=== PATIENT | female | born 1950 | race African-American/Black ===

== ENCOUNTER 2017-05-09 02:49 | Emergency (ER) | payer MEDICARE ==
[~2017-05-09] VITALS: Ht 172.7 cm; Wt 81.6 kg
[2017-05-09 03:40] VITALS: BP 130/80
[2017-05-09 03:41] LABS: Basophils # (auto) 0.1 uL; Basophils % (auto) 0.7 % (0.0-2.0); Eosinophils # (auto) 0.4 uL; Eosinophils % (auto) 4.8 % (0.0-7.0); Hematocrit 40.8 % (36.0-46.0); Hemoglobin 14.1 g/dL (12.2-16.2); Lymphocytes # (auto) 1.7 uL; Lymphocytes % (auto) 21.6 % (10.0-50.0); Mean Corpuscular Hemoglobin 29.6 pg (28.0-32.0); Mean Corpuscular Hgb Conc. 34.6 g/dL (32.0-36.0); Mean Corpuscular Volume 85.7 fL (80.0-100.0); Mean Platelet Volume 6.7 fL (6.9-10.8); Monocytes # (auto) 0.8 uL; Monocytes % (auto) 10.3 % (0.0-12.0); Neutrophils # (auto) 4.9 uL; Neutrophils % (auto) 62.6 % (37.0-80.0); Nucleated Red Blood Cells % 0.1 %; Platelet Count (auto) 326 10^3/uL (140-450); Red Cell Distribution Width 14.2 % (11.8-14.3); White Blood Cell 7.9 10^3/uL (4.4-10.8)
[2017-05-09 04:06] LABS: Albumin 3.5 g/dL (3.4-5.0); Alkaline Phosphatase 130 U/L (45-117); Anion Gap 8 (5-15); Aspartate Aminotransferase 29 U/L (15-37); BUN/Creatinine Ratio 16.3; Bilirubin, Total 0.3 mg/dL (0.2-1.0); Blood Urea Nitrogen 14 mg/dL (7-18); Calcium 8.8 mg/dL (8.5-10.1); Carbon Dioxide 28 mmol/L (21-32); Chloride 102 mmol/L (98-107); GFR African American 84 mL/min; GFR Non-African American 70 mL/min; Glucose 105 mg/dL (74-106); Potassium 3.4 mmol/L (3.5-5.1); Sodium 138 mmol/L (136-145); Total Protein 7.5 g/dL (6.4-8.2)
[2017-05-09 04:19] LABS: B-Type Natriuretic Peptide 10.81 pg/mL (0-100)
[2017-05-09 04:20] LABS: Temperature: 22.9 C (20.0-25.0)
== END 2017-05-09 05:42 | disposition home or self-care (01) ==
LOC: EDBD 02:49 → ER 02:54
DX: M54.17 Radiculopathy, lumbosacral region (principal); E87.6 Hypokalemia; I50.9 Heart failure, unspecified; I11.0 Hypertensive heart disease with heart failure
CPT/HCPCS: 36415; 71010; 72131; 80053; 83880; 84484; 85025; 93005

== ENCOUNTER 2019-09-14 02:22 | Emergency (ER) | payer OTHER ==
[~2019-09-14] VITALS: Ht 157.5 cm; Wt 81.6 kg
[2019-09-14] MEDS ORDERED: methylPREDNISolone SOD SUCC 125 MG/2 ML VL IM ONE (05:15)
[2019-09-14] MEDS ORDERED: cefTRIAXone SOD 1,000 MG VL IM ONE (05:15)
[2019-09-14] MEDS ORDERED: cefTRIAXone W LIDOCAINE 1 GM IM IM ONE (05:15)
[2019-09-14] MEDS ORDERED: PROMETHAZINE W/CODEINE 5 ML ORAL SYRUP PO ONE (05:15)
[2019-09-14 05:43] VITALS: BP 162/96
== END 2019-09-14 06:29 | disposition home or self-care (01) ==
LOC: ER 02:22
DX: J18.9 Pneumonia, unspecified organism (principal); H60.93 Unspecified otitis externa, bilateral; I11.0 Hypertensive heart disease with heart failure; I50.9 Heart failure, unspecified
CPT/HCPCS: 71046; 96372; 99283; J0696; J2930

== ENCOUNTER 2020-07-26 08:05 | Emergency (ER) | payer OTHER ==
[~2020-07-26] VITALS: Ht 157.5 cm; Wt 79.4 kg
[2020-07-26 09:00] VITALS: BP 135/96
== END 2020-07-26 09:35 | disposition home or self-care (01) ==
LOC: ER 08:05
DX: K59.00 Constipation, unspecified (principal); I11.0 Hypertensive heart disease with heart failure; I50.9 Heart failure, unspecified

== ENCOUNTER 2021-09-02 13:15 | Emergency (ER) | payer OTHER ==
[~2021-09-02] VITALS: Ht 157.5 cm; Wt 81.6 kg
[2021-09-02 14:26] LABS: Basophils # (auto) 0.1 10 ^3/uL (0-0.2); Basophils % (auto) 0.7 % (0.0-2.0); Eosinophils # (auto) 0.1 10 ^3/uL (0-0.8); Eosinophils % (auto) 0.9 % (0.0-7.0); Hematocrit 43.8 % (36.0-46.0); Hemoglobin 14.8 g/dL (12.2-16.2); Lymphocytes % (auto) 12.7 % (10.0-50.0); Mean Corpuscular Hemoglobin 28.3 pg (28.0-32.0); Mean Corpuscular Hgb Conc. 33.7 g/dL (32.0-36.0); Mean Corpuscular Volume 84.1 fL (80.0-100.0); Monocytes # (auto) 1.1 10 ^3/uL (0-1.3); Monocytes % (auto) 14.4 % (0.0-12.0); Neutrophils # (auto) 5.6 10 ^3/uL (1.6-8.6); Neutrophils % (auto) 71.3 % (37.0-80.0); Red Blood Cells 5.21 10^6/uL (4.0-5.20); Red Cell Distribution Width 14.8 % (11.8-14.3); White Blood Cell 7.9 10^3/uL (4.4-10.8)
[2021-09-02 14:39] LABS: Albumin 3.8 g/dL (3.4-5.0); Calcium 9.1 mg/dL (8.5-10.1); Potassium 3.6 mmol/L (3.5-5.1)
[2021-09-02 14:44] LABS: BUN/Creatinine Ratio 14.1; Bilirubin, Total 0.3 mg/dL (0.2-1.0); Total Protein 7.8 g/dL (6.4-8.2)
[2021-09-02] MEDS ORDERED: cefTRIAXone 1GM/50ML D5W 50 ML IV ONE (19:45)
[2021-09-02] MEDS ORDERED: AZITHROMYCIN 500MG/ 250ML 250 ML IV ONE (19:45)
[2021-09-02] MEDS ORDERED: DexAMETHasone SOD PHOS 10MG/1ML VIAL INJ IV ONE (20:30)
[2021-09-03] MEDS ORDERED: IPRATROPIUM BROM 0.5 MG/2.5ML INH SOL NEB ONE (07:45)
[2021-09-03] MEDS ORDERED: SPIRONOLACTONE 25 MG TAB PO ONE (07:45)
[2021-09-03] MEDS ORDERED: AZITHROMYCIN 250 MG TAB PO ONE (07:45)
[2021-09-03] MEDS ORDERED: ALBUTEROL SULF 2.5 MG/0.5ML(0.5%) NEB SOLN NEB ONE (07:45)
[2021-09-03] MEDS ORDERED: FUROSEMIDE 40 MG/4 ML VIAL IV ONE (07:45)
[2021-09-03 10:30] VITALS: BP 115/60
== END 2021-09-03 10:48 | disposition home or self-care (01) ==
LOC: ER 13:19
DX: U07.1 COVID-19 (principal); J12.82 Pneumonia due to coronavirus disease 2019; R42 Dizziness and giddiness; I11.0 Hypertensive heart disease with heart failure; I50.9 Heart failure, unspecified; J45.909 Unspecified asthma, uncomplicated
CPT/HCPCS: 36415; 70450; 71045; 80053; 84484; 85025; 87426; 93005; 94640; 96365; 96366; 96368; 96375; 99285; J0456; J0696; J1100; J1940; J7644

== ENCOUNTER 2022-01-15 19:10 | Emergency (ER) | payer OTHER ==
[~2022-01-15] VITALS: Ht 157.5 cm; Wt 81.6 kg
[2022-01-15 19:20] VITALS: BP 120/81
[2022-01-15] MEDS ORDERED: guaiFENesin-CODEINE Liq 5 ML UD PO ONE (21:00)
[2022-01-15] MEDS ORDERED: FUROSEMIDE 40 MG TAB PO ONE (22:00)
[2022-01-15] MEDS ORDERED: CEPH-322 PO (22:12)
== END 2022-01-15 22:44 | disposition home or self-care (01) ==
LOC: ER 19:10
DX: S90.822A Blister (nonthermal), left foot, initial encounter (principal); R60.0 Localized edema; I11.0 Hypertensive heart disease with heart failure; I50.9 Heart failure, unspecified; J45.909 Unspecified asthma, uncomplicated; X58.XXXA Exposure to other specified factors, initial encounter; Y93.89 Activity, other specified; Y92.89 Other specified places as the place of occurrence of the external cause; Y99.8 Other external cause status
CPT/HCPCS: 71045; 93971

== ENCOUNTER 2022-03-06 09:12 | Emergency (ER) | payer OTHER ==
[~2022-03-06] VITALS: Ht 157.5 cm; Wt 180.0 kg
[~2022-03-06 09:12] MED LIST: CEPH-322 PO
[2022-03-06 09:18] VITALS: BP 117/49
[2022-03-06 09:54] LABS: Urine Bacteria FEW /hpf (None Seen); Urine Blood 2+ /uL (Negative); Urine Specific Gravity 1.015 (1.001-1.035); Urine WBC 1907 /hpf (0 - 5); Urine WBC Clumps PRESENT /hpf (None Seen)
[2022-03-06] MEDS ORDERED: cefTRIAXone 1GM/50ML D5W 50 ML IV ONE (10:15)
[2022-03-06] MEDS ORDERED: SULF800T7 PO (10:28)
== END 2022-03-06 11:09 | disposition home or self-care (01) ==
LOC: ER 09:12
DX: N39.0 Urinary tract infection, site not specified (principal); J45.909 Unspecified asthma, uncomplicated; I10 Essential (primary) hypertension; G89.29 Other chronic pain; Z87.440 Personal history of urinary (tract) infections
CPT/HCPCS: 81001; 96365; 99284; J0696

== ENCOUNTER 2022-10-09 02:11 | Emergency (ER) | payer OTHER ==
[~2022-10-09] VITALS: Ht 157.5 cm; Wt 88.5 kg
[~2022-10-09 02:11] MED LIST changes: +SULF800T7 PO
[2022-10-09] MEDS ORDERED: ALBUTEROL SULF 2.5 MG/0.5ML(0.5%) NEB SOLN ONE (02:28)
[2022-10-09] MEDS ORDERED: IPRATROPIUM BROM 0.5 MG/2.5ML INH SOL ONE (02:28)
[2022-10-09] MEDS ORDERED: ALBUTEROL SULF 2.5 MG/0.5ML(0.5%) NEB SOLN NEB ONE (02:45)
[2022-10-09] MEDS ORDERED: IPRATROPIUM BROM 0.5 MG/2.5ML INH SOL NEB ONE (02:45)
[2022-10-09 03:10] LABS: Basophils # (auto) 0.1 10 ^3/uL (0-0.2); Basophils % (auto) 0.5 % (0.0-2.0); Eosinophils # (auto) 0.5 10 ^3/uL (0-0.8); Eosinophils % (auto) 4.7 % (0.0-7.0); Hematocrit 40.8 % (36.0-46.0); Hemoglobin 13.8 g/dL (12.2-16.2); Lymphocytes # (auto) 2.9 10 ^3/uL (0.4-5.4); Mean Corpuscular Hemoglobin 29.3 pg (28.0-32.0); Mean Corpuscular Hgb Conc. 33.7 g/dL (32.0-36.0); Mean Corpuscular Volume 86.8 fL (80.0-100.0); Monocytes # (auto) 0.9 10 ^3/uL (0-1.3); Monocytes % (auto) 8.4 % (0.0-12.0); Neutrophils # (auto) 6.4 10 ^3/uL (1.6-8.6); Neutrophils % (auto) 59.4 % (37.0-80.0); Nucleated Red Blood Cells % 0.1 %; Red Cell Distribution Width 14.6 % (11.8-14.3); White Blood Cell 10.7 10^3/uL (4.4-10.8)
[2022-10-09 03:28] LABS: Albumin 3.6 g/dL (3.4-5.0); BUN/Creatinine Ratio 20.6; Calcium 8.6 mg/dL (8.5-10.1)
[2022-10-09] MEDS ORDERED: DexAMETHasone SOD PHOS 10MG/1ML VIAL INJ IM ONE (03:45)
[2022-10-09] MEDS ORDERED: OSELTAMIVIR 75 MG CAP PO ONE (03:45)
[2022-10-09 04:02] LABS: Bilirubin, Total 0.3 mg/dL (0.2-1.0); Total Protein 7.1 g/dL (6.4-8.2)
[2022-10-09] MEDS ORDERED: ALBU108A5 IN (04:29)
[2022-10-09] MEDS ORDERED: BENZ200C64 PO (04:29)
[2022-10-09] MEDS ORDERED: OSEL75CA5 PO (04:29)
[2022-10-09 05:07] VITALS: BP 131/61
== END 2022-10-09 05:12 | disposition home or self-care (01) ==
LOC: EDBD 02:11 → ER 02:11
DX: J10.00 Influenza due to other identified influenza virus with unspecified type of pneumonia (principal); J10.1 Influenza due to other identified influenza virus with other respiratory manifestations; Z20.822 Contact with and (suspected) exposure to COVID-19
CPT/HCPCS: 36415; 71045; 80053; 84484; 85025; 87426; 87804; 94640; 96372; 99284; J1100; J7644

== ENCOUNTER 2023-06-11 03:32 | Emergency (ER) | payer OTHER ==
[~2023-06-11] VITALS: Ht 157.5 cm; Wt 79.4 kg
[~2023-06-11 03:32] MED LIST changes: +ALBU108A5 IN; +BENZ200C64 PO; -CEPH-322 PO; +CEPH250C PO; +OSEL75CA5 PO; +SULF800T23 PO; -SULF800T7 PO
[2023-06-11 04:51] LABS: Basophils # (auto) 0 10 ^3/uL (0-0.2); Basophils % (auto) 0.6 % (0.0-2.0); Eosinophils # (auto) 0.5 10 ^3/uL (0-0.8); Eosinophils % (auto) 6.4 % (0.0-7.0); Hematocrit 43.3 % (36.0-46.0); Hemoglobin 14.3 g/dL (12.2-16.2); Lymphocytes # (auto) 1.7 10 ^3/uL (0.4-5.4); Lymphocytes % (auto) 20.1 % (10.0-50.0); Mean Corpuscular Hemoglobin 28.6 pg (28.0-32.0); Mean Corpuscular Volume 86.7 fL (80.0-100.0); Monocytes # (auto) 0.8 10 ^3/uL (0-1.3); Monocytes % (auto) 10.1 % (0.0-12.0); Neutrophils # (auto) 5.3 10 ^3/uL (1.6-8.6); Neutrophils % (auto) 62.8 % (37.0-80.0); Nucleated Red Blood Cells % 0.2 %; Red Cell Distribution Width 14.9 % (11.8-14.3); White Blood Cell 8.4 10^3/uL (4.4-10.8)
[2023-06-11 05:06] LABS: INR 0.98 (0.9-1.15); Partial Thromboplastin Time 26.9 SEC (24.5-34.5); Prothrombin Time 10.3 sec (9.3-11.8)
[2023-06-11 05:09] LABS: Alanine Aminotransferase 24 U/L (7-40); Albumin 4.3 g/dL (3.2-4.8); Alkaline Phosphatase 102 U/L (46-116); Anion Gap 10 (5-15); Aspartate Aminotransferase 31 U/L (13-40); Blood Urea Nitrogen 12 mg/dL (9-23); Calcium 9.4 mg/dL (8.7-10.4); Carbon Dioxide 25 mmol/L (20-30); Chloride 105 mmol/L (98-107); Glucose 100 mg/dL (74-106); Magnesium 2.2 mg/dL (1.6-2.6); Potassium 3.9 mmol/L (3.5-5.1); Sodium 140 mmol/L (136-145)
[2023-06-11 05:10] LABS: Bilirubin, Total 0.2 mg/dL (0.2-1.0)
[2023-06-11] MEDS ORDERED: AZITHROMYCIN 500MG/ 250ML 250 ML IV ONE (05:30)
[2023-06-11] MEDS ORDERED: ALBUTEROL SULF 2.5 MG/0.5ML(0.5%) NEB SOLN NEB ONE (05:30)
[2023-06-11] MEDS ORDERED: cefTRIAXone 1GM/50ML D5W 50 ML IV ONE (05:30)
[2023-06-11] MEDS ORDERED: ALBUTEROL MEDNEB 2.5 mg/3ml NEB ONE (05:44)
[2023-06-11 08:11] VITALS: BP 141/58; PULSE 66; RESP 19; TEMP 97.9; O2SAT 94
[2023-06-11] MEDS ORDERED: FUROSEMIDE 40 MG/4 ML VIAL IV ONE (11:00)
[2023-06-11] MEDS ORDERED: AUG875T PO (12:43)
[2023-06-11] MEDS ORDERED: AZIT-81 PO (12:45)
[2023-06-11] MEDS ORDERED: PRED20TA2 PO (12:48)
[2023-06-11] MEDS ORDERED: IPRA0.00 IN (12:50)
[2023-06-11] MEDS ORDERED: methylPREDNISolone SOD SUCC 40 MG/ML VL IV ONE (13:00)
== END 2023-06-11 14:17 | disposition home or self-care (01) ==
LOC: EDBD 03:32 → ER 03:32
DX: J18.9 Pneumonia, unspecified organism (principal); J45.909 Unspecified asthma, uncomplicated; I10 Essential (primary) hypertension; R91.8 Other nonspecific abnormal finding of lung field; Z87.440 Personal history of urinary (tract) infections
CPT/HCPCS: 36415; 71045; 80053; 83735; 83880; 84484; 85025; 85610; 85730; 93005; 94640; 96365; 96366; 96367; 96375; 99285; J0456; J0696; J1940; J2920

== ENCOUNTER 2023-06-15 15:45 | Emergency (ER) | payer OTHER ==
[~2023-06-15] VITALS: Ht 165.1 cm; Wt 81.8 kg
[~2023-06-15 15:45] MED LIST changes: +AUG875T PO; +AZIT-81 PO; +IPRA0.00 IN; +PRED20TA2 PO
[2023-06-15 17:07] LABS: Alanine Aminotransferase 36 U/L (7-40); Albumin 4.7 g/dL (3.2-4.8); Alkaline Phosphatase 100 U/L (46-116); Anion Gap 8 (5-15); Aspartate Aminotransferase 31 U/L (13-40); BUN/Creatinine Ratio 17.1 (10.0-20.0); Blood Urea Nitrogen 18 mg/dL (9-23); Calcium 9.6 mg/dL (8.7-10.4); Carbon Dioxide 28 mmol/L (20-30); Chloride 104 mmol/L (98-107); Glucose 122 mg/dL (74-106); Magnesium 2.3 mg/dL (1.6-2.6); Potassium 4.4 mmol/L (3.5-5.1); Sodium 140 mmol/L (136-145)
[2023-06-15 17:08] LABS: Bilirubin, Total 0.2 mg/dL (0.2-1.0); Total Protein 7.3 g/dL (5.7-8.2)
[2023-06-15 17:14] LABS: Basophils # (auto) 0 10 ^3/uL (0-0.2); Basophils % (auto) 0.4 % (0.0-2.0); Eosinophils # (auto) 0 10 ^3/uL (0-0.8); Eosinophils % (auto) 0.1 % (0.0-7.0); Hematocrit 45.8 % (36.0-46.0); Hemoglobin 14.9 g/dL (12.2-16.2); Lymphocytes # (auto) 1.1 10 ^3/uL (0.4-5.4); Mean Corpuscular Hemoglobin 28.3 pg (28.0-32.0); Mean Corpuscular Hgb Conc. 32.6 g/dL (32.0-36.0); Mean Corpuscular Volume 86.8 fL (80.0-100.0); Monocytes # (auto) 0.1 10 ^3/uL (0-1.3); Neutrophils # (auto) 8.8 10 ^3/uL (1.6-8.6); Neutrophils % (auto) 87.5 % (37.0-80.0); Nucleated Red Blood Cells % 0.1 %; Red Blood Cells 5.27 10^6/uL (4.0-5.20); Red Cell Distribution Width 14.9 % (11.8-14.3); White Blood Cell 10.1 10^3/uL (4.4-10.8)
[2023-06-15 17:30] LABS: Lactic Acid w/Reflex 2.5 mmol/L (0.4-2.0)
[2023-06-15 20:00] LABS: Urine WBC None Seen /hpf (0 - 5)
[2023-06-15 20:22] LABS: Base Excess 1.9 mmol/L (-2.0-2.0)
[2023-06-15 20:26] LABS: Urine Bacteria NONE SEEN /hpf (None Seen); Urine Blood Negative /uL (Negative); Urine Clarity Clear (Clear); Urine Color Colorless (Yellow); Urine Hyaline Cast FEW /lpf (0 - 2); Urine Protein, UAD Negative (Negative); Urine Specific Gravity 1.006 (1.001-1.035); Urine Urobilinogen Normal (Negative)
[2023-06-15] MEDS ORDERED: BUDE1AER4 IN (21:08)
[2023-06-15 22:28] VITALS: BP 119/54; PULSE 65; RESP 17; TEMP 97.8; O2SAT 97
== END 2023-06-16 14:01 | disposition home or self-care (01) ==
LOC: ER 15:45 → EDBD 15:45 → ER 06-16 13:30
DX: J96.10 Chronic respiratory failure, unspecified whether with hypoxia or hypercapnia (principal); J44.9 Chronic obstructive pulmonary disease, unspecified; J84.9 Interstitial pulmonary disease, unspecified; I11.0 Hypertensive heart disease with heart failure; I50.9 Heart failure, unspecified
CPT/HCPCS: 36415; 36600; 71045; 71250; 80053; 81001; 82805; 83605; 83735; 83880; 84484; 85025; 87040

== ENCOUNTER 2023-08-19 18:44 | Emergency (ER) | payer OTHER ==
[~2023-08-19] VITALS: Ht 157.5 cm; Wt 84.1 kg
[~2023-08-19 18:44] MED LIST changes: +BUDE1AER4 IN
[2023-08-19] MEDS ORDERED: FUROSEMIDE 40 MG/4 ML VIAL IV ONE (19:00)
[2023-08-19 19:35] LABS: Basophils # (auto) 0.1 10 ^3/uL (0-0.2); Basophils % (auto) 0.7 % (0.0-2.0); Eosinophils # (auto) 0.4 10 ^3/uL (0-0.8); Eosinophils % (auto) 4.9 % (0.0-7.0); Hematocrit 42.5 % (36.0-46.0); Hemoglobin 13.8 g/dL (12.2-16.2); Lymphocytes # (auto) 1.7 10 ^3/uL (0.4-5.4); Mean Corpuscular Hemoglobin 28.4 pg (28.0-32.0); Mean Corpuscular Hgb Conc. 32.5 g/dL (32.0-36.0); Mean Corpuscular Volume 87.5 fL (80.0-100.0); Monocytes # (auto) 0.7 10 ^3/uL (0-1.3); Monocytes % (auto) 9.2 % (0.0-12.0); Neutrophils # (auto) 4.9 10 ^3/uL (1.6-8.6); Neutrophils % (auto) 63.2 % (37.0-80.0); Red Blood Cells 4.86 10^6/uL (4.0-5.20); White Blood Cell 7.8 10^3/uL (4.4-10.8)
[2023-08-19 19:51] LABS: INR 1.03 (0.9-1.15); Partial Thromboplastin Time 25.4 SEC (24.5-34.5); Prothrombin Time 10.8 sec (9.3-11.8)
[2023-08-19 19:53] LABS: Alanine Aminotransferase 22 U/L (7-40); Albumin 4.3 g/dL (3.2-4.8); Alkaline Phosphatase 86 U/L (46-116); Anion Gap 6 (5-15); Aspartate Aminotransferase 23 U/L (13-40); BUN/Creatinine Ratio 16.2 (10.0-20.0); Bilirubin, Total 0.2 mg/dL (0.2-1.0); Blood Urea Nitrogen 16 mg/dL (9-23); Calcium 9.4 mg/dL (8.7-10.4); Carbon Dioxide 31 mmol/L (20-30); Chloride 105 mmol/L (98-107); Glucose 92 mg/dL (74-106); Potassium 4.1 mmol/L (3.5-5.1); Sodium 142 mmol/L (136-145); Total Protein 6.8 g/dL (5.7-8.2)
[2023-08-19] MEDS ORDERED: FURO1TAB33 PO ×3 (22:43→23:51)
[2023-08-19 23:38] VITALS: BP 125/49; PULSE 73; RESP 18; TEMP 98.2; O2SAT 95
== END 2023-08-19 23:45 | disposition home or self-care (01) ==
LOC: EDBD 18:44 → ER 18:44
DX: R60.0 Localized edema (principal); R07.89 Other chest pain; I11.0 Hypertensive heart disease with heart failure; I50.9 Heart failure, unspecified; Z79.2 Long term (current) use of antibiotics; Z79.899 Other long term (current) drug therapy
CPT/HCPCS: 36415; 71045; 80053; 83880; 84484; 85025; 85610; 85730; 93005; 93970